=== PATIENT | female | born 1970 | race African-American/Black ===

== ENCOUNTER 2017-07-25 21:05 | Emergency (ER) | payer MEDICAID ==
[~2017-07-25] VITALS: Ht 162.6 cm; Wt 68.0 kg
[2017-07-25] MEDS ORDERED: ONDANSETRON 4MG ODT PO ONE (23:00)
[2017-07-25] MEDS ORDERED: KETOROLAC 60MG/2ML VIAL IM ONE (23:00)
[2017-07-25] MEDS ORDERED: MORPHINE SULFATE 10 MG/ML CPJ IM ONE (23:00)
[2017-07-25 23:57] LABS: HCG SCREEN NEGATIVE
[2017-07-26 02:23] VITALS: BP 145/62
== END 2017-07-26 02:29 | disposition home or self-care (01) ==
LOC: ER 21:44
DX: S02.2XXA Fracture of nasal bones, initial encounter for closed fracture (principal); S00.12XA Contusion of left eyelid and periocular area, initial encounter; W01.198A Fall on same level from slipping, tripping and stumbling with subsequent striking against other object, initial encounter; Y93.89 Activity, other specified; Y92.488 Other paved roadways as the place of occurrence of the external cause
CPT/HCPCS: 70450; 70486; 84703; 96372; 99285; J1885; J2270; Q0162